=== PATIENT | male | born 2000 | race Caucasian/White ===

== ENCOUNTER 2025-05-03 10:51 | Emergency (ER) | payer OTHER ==
[~2025-05-03] VITALS: Ht 190.5 cm; Wt 113.4 kg
[2025-05-03 11:05] VITALS: TEMP 98.1
[2025-05-03] MEDS ORDERED: LIDOCAINE 1%-EPI 1:100,000 20 ML VIAL ONE (11:35)
[2025-05-03] MEDS ORDERED: IBUPROFEN 600 MG TABLET ONE (11:35)
[2025-05-03] MEDS: IBUPROFEN 600 MG TABLET PO ONE (11:44)
[2025-05-03] MEDS: LIDOCAINE 1%-EPI 1:100,000 50 ML VIAL IJ ONE (11:44)
[2025-05-03] MEDS ORDERED: NAPR-1164 PO (12:47)
[2025-05-03] MEDS ORDERED: DOXY100C2 PO (12:47)
[2025-05-03 13:19] VITALS: BP 124/80; O2SAT 99
== END 2025-05-03 13:20 | disposition home or self-care (01) ==
LOC: ER 10:54
DX: K61.0 Anal abscess (principal)
CPT/HCPCS: 99283; 10060; J3490 ×2; A6407

== ENCOUNTER 2025-05-17 16:35 | Emergency (ER) | payer OTHER ==
[~2025-05-17] VITALS: Ht 190.5 cm; Wt 95.3 kg
[~2025-05-17 16:35] MED LIST: DOXY100C2 PO; NAPR-1164 PO
[2025-05-17] MEDS ORDERED: MINERAL OIL 133 ML (PYXIS) 1 EA ENEMA RC ONE (17:49)
[2025-05-17] MEDS: MINERAL OIL 133 ML (PYXIS) 1 EA ENEMA RC ONE (17:52)
[2025-05-17] MEDS ORDERED: LACT10SO58 PO (19:06)
[2025-05-17] MEDS ORDERED: LACTULOSE 10 G/15 ML UDC (PYXIS) ONE (19:13)
[2025-05-17] MEDS: LACTULOSE 10 G/15 ML UDC (PYXIS) PO ONE (19:18)
[2025-05-17 19:34] VITALS: BP 119/82; TEMP 98.3; O2SAT 99
== END 2025-05-17 19:34 | disposition home or self-care (01) ==
LOC: ER 17:15
DX: K59.00 Constipation, unspecified (principal); Z87.19 Personal history of other diseases of the digestive system; Z91.018 Allergy to other foods